=== PATIENT | male | born 1995 | race Caucasian/White ===

== ENCOUNTER 2021-12-07 19:11 | Emergency (ER) | payer BC, SELFPAY ==
--- NOTE | ~2021-12-07 | XR_ITS ---
EXAMINATION: [id number] INDICATION: Right-sided chest pain TECHNIQUE: A frontal view of the chest and 3 views of the right ribs were obtained. COMPARISON: None. FINDINGS: The lungs are free of acute opacities. No pleural effusion or pneumothorax. The cardiomedia stinal silhouette is normal. No displaced rib fracture is identified. IMPRESSION: 1. No acute cardiopulmonary abnormality or evidence of displaced rib fracture. Reviewed, dictated and finalized at location F.
--- NOTE | ~2021-12-07 | CT_ITS ---
EXAMINATION: CT cervical spine wo con DATE: 12/07/2021 19:34 INDICATION: Head injury TECHNIQUE: Computed tomography (CT) of the cervical spine was performed without intravenous contrast. The dose-length product (DLP) was 566.76 mGy-cm. Automated exposure control and iterative reconstruc tion technique were employed. COMPARISON: None FINDINGS: There is no fracture, dislocation, or subluxation. The vertebral body heights, alignment, a nd intervertebral disc spaces are normal. The paravertebral soft tissues are unremarkable. IMPRESSION: 1. No acute osseous abnormality. Reviewed, dictated and finalized at location F.
--- NOTE | ~2021-12-07 | CT_ITS ---
EXAMINATION: CT brain wo con INDICATION: Headache COMPARISON: None TECHNIQUE: Standard unenhanced head CT. The dose-length product (DLP) was 681.00 mGy-cm. The mA was a djusted according to patient size. Iterative reconstruction technique was employed. FINDINGS: There is no intracranial hemorrhage, acute infarction, or abnormal mass lesion. The ventric les are normal. There is no abnormal mass effect or midline shift. The payne-white matter differentiat ion is normal. The basal cisterns are patent. The orbits are normal. The paranasal sinuses, mastoids and calvarium are normal. IMPRESSION: 1. No acute intracranial abnormality. Reviewed, dictated and finalized at location F.
[2021-12-07 19:13] VITALS: BP 164/74; PULSE 93; RESP 16; TEMP 37.1; O2SAT 10
--- NOTE | 2021-12-07 20:13 | ED.HEATRA ---
HPI - Head Injury General Chief complaint: Trauma Stated complaint: fall off roof Time Seen by Provider: 12/07/21 19:22 History of Present Illness HPI Narrative: 26-year-old male presents here after he fell off a one-story roof about 4 hours prior to arrival here, per family he did not pass out or throw up however has seemed confused and was repeating himself, he did fall in his right side and has bruises to his right forehead, and per mother seem to have a whiplash injury to his neck, patient denies pain anywhere else other than some around his right ribs, he was able to ambulate here. No focal numbness, weakness. Related Data Allergies Allergy/AdvReac Type Severity Reaction Status Date / Time No Known Allergies Allergy Verified 12/07/21 19:12 Review of Systems Review of Systems: CONST: No weakness HEENT: Head trauma C/V: Right-sided rib pain RESP: No difficulty breathing GI: No nausea or vomiting : No hematuria M/S: No extremity pain SKIN: Abrasions to right lower leg NEURO: [No focal numbness or weakness] PSYCH: [No depression] [facility] Past Medical History Medical History (Updated 12/07/21 @ 23:15 by Valeri Stanford MD) No active medical problems Surgical History Surgical History (Updated 12/07/21 @ 23:15 by Valeri Stanford MD) H/O right knee surgery Exam Narrative: EXAMINATION OF ORGAN SYSTEMS/BODY AREAS: Constitutional: Vital signs per nursing GENERAL:[No acute distress, non-toxic appearing.] HEAD: Bruising to right forehead EYES: EOMI, conjunctiva normal ENT: Hearing grossly intact LUNGS: Nonlabored breathing. Clear to all station bilaterally, some tenderness to the right side HEART: [Regular rate and rhythm] ABD: [Soft], [nontender to palpation] EXT: Normal range of motion, no obvious deformity, no tenderness palpation, there are some abrasions to the right lower leg SKIN: Patient's right lower leg NEURO: [Alert and oriented x 3. No gross focal sensory or strength deficits.] Slightly slow to respond to questions PSYCH: Normal affect Course Vital Signs Vital signs: Vital Signs Temperature 98.8 F 12/07/21 19:13 Pulse Rate 93 12/07/21 19:13 Respiratory Rate 16 12/07/21 19:13 Blood Pressure 164/74 H 12/07/21 19:13 Pulse Oximetry 10 L 12/07/21 19:13 Oxygen Delivery Room Air 12/07/21 19:13 Temperature 98.8 F 12/07/21 19:13 Pulse Rate 97 12/07/21 20:22 Respiratory Rate 20 12/07/21 20:22 Blood Pressure 144/88 H 12/07/21 20:22 Pulse Oximetry 99 12/07/21 20:22 Oxygen Delivery Room Air 12/07/21 19:13 MDM - Head Injury MDM Narrative Medical decision making narrative: 26-year-old male presents here after trauma/fall from roof, vital signs stable here, exam shows no focal neurologic deficits other than slight slow response to questions, he does have abrasions to his right lower leg but otherwise ambulates with steady gait, has no obvious deformity or tenderness to his extremities, has some mild right rib tenderness but no chest tenderness or abdominal tenderness, no tenderness to the back or neck. My concern is for possible fractures or intracranial abnormality versus concussion, imaging is obtained and shows no acute abnormalities on my or radiologist interpretation, his tetanus shot is updated, on reevaluation he is now back to baseline, answering questions and speaking sentences appropriately, I have given the patient and his mother at bedside counseling on concussions and treatment, as well as need for follow-up and return precautions. Stable for discharge at this time Discharge Plan Discharge Clinical Impression: Acute head trauma, Fall from, out of or through roof, initial encounter, Concussion Patient Disposition: Home, Self-Care Condition: Stable Instructions: Antibiotic Form, Concussion (ED), Post Concussion Syndrome (ED) Additional Instructions: You will likely be having some headaches over the next few days to weeks, he can take Tylenol at margi
[2021-12-07 20:22] VITALS: BP 144/88; PULSE 97; RESP 20; O2SAT 99
--- NOTE | 2021-12-07 20:26 | PC.NURSE ---
PT and mother state pt had tetanus shot February 14 2021 pt does not want one at this time.
== END 2021-12-07 20:37 | disposition home or self-care (01) ==
PROVIDERS: Emergency Provider Emergency Medicine
DX: S06.0X0A Concussion without loss of consciousness, initial encounter (principal); S80.811A Abrasion, right lower leg, initial encounter; S00.83XA Contusion of other part of head, initial encounter; W13.2XXA Fall from, out of or through roof, initial encounter
CPT/HCPCS: 70450; 71101; 72125; 99284